=== PATIENT | female | born 1975 | race Asian ===

== ENCOUNTER 2018-08-21 13:11 | Emergency (ER) | payer MEDICAID ==
[~2018-08-21] VITALS: Ht 154.9 cm; Wt 65.8 kg
[~2018-08-21 13:11] MED LIST: DIP25C PO
[2018-08-21 13:32] VITALS: BP 142/87
== END 2018-08-21 15:40 | disposition home or self-care (01) ==
LOC: ER 13:19
DX: S90.852A Superficial foreign body, left foot, initial encounter (principal); J45.909 Unspecified asthma, uncomplicated; Z79.899 Other long term (current) drug therapy; X58.XXXA Exposure to other specified factors, initial encounter; Y93.89 Activity, other specified; Y99.8 Other external cause status; Y92.89 Other specified places as the place of occurrence of the external cause
CPT/HCPCS: 73620; 99283; L3260